=== PATIENT | male | born 1945 | race Caucasian/White ===

== ENCOUNTER 2016-09-30 02:34 | Emergency (ER) | payer MEDICARE ==
[2016-09-30] MEDS ORDERED: Ondansetron INJ* 2 MG/ML VIAL IV ONE (02:57)
[2016-09-30] MEDS ORDERED: Ketorolac INJ* 30 MG/ML 1 ML VIAL IV ONE (02:57)
[2016-09-30] MEDS ORDERED: NS 0.9% 1000 ML* 1,000 ML IV ONE (02:57)
[2016-09-30 03:19] LABS: Hematocrit 44 % (42-52); Hemoglobin 14.4 g/dl (14.0-18.0); Mean Corpuscular HGB Conc 33 g/dl (31-36); Mean Corpuscular Hemoglobin 31 pg (27-31); Mean Corpuscular Volume 93 fL (80-94); Mean Platelet Volume 9 um3 (7.4-10.4); Red Blood Count 4.73 10^6/ul (4.0-5.4); Red Cell Distribution Width 15 % (10.5-15); White Blood Count 7.2 10^3/ul (3.5-10.8)
[2016-09-30 03:34] LABS: Albumin 3.8 g/dL (3.2-5.2); BUN/Creatinine Ratio 17.1 (8-20); C Reactive Protein 4.67 mg/L (< 5.00); Calcium 8.9 mg/dL (8.6-10.3); EGFR African American 70.8 (>60); EGFR Non-African American 55.1 (>60); Globulin 3.5 g/dL (2-4); Magnesium 1.8 mg/dL (1.9-2.7); Potassium 4.1 mmol/L (3.5-5.0); Total Bilirubin 0.8 mg/dL (0.2-1.0); Total Protein 7.3 g/dL (6.4-8.9)
[2016-09-30 05:59] LABS: Budding Yeast Present (Absent); Urine Bacteria Absent (Absent); Urine Bilirubin Negative (Negative); Urine Glucose Negative (Negative); Urine Nitrite Negative (Negative)
--- NOTE | 2016-09-30 06:19 | ED ---
Regla Lacey Erika, scribed for Carlitos Xie MD on 09/30/16 at 0315 . Back Pain - HPI Summary HPI Summary: A 70 y/o M presents to the ED with a CC of lower left-sided back pain starting at 19:30 today. Pt reports the pain has been intermittent. Associated symptoms include vomiting. Pt reports a Hx kidney stones 15-20 years ago, and states this feel similar. He states he had lithotripsy with that episode. - History of Current Complaint Chief Complaint: EDFlankPain Stated Complaint: LOWER BACK PAIN Time Seen by Provider: 09/30/16 02:55 Hx Obtained From: Patient Onset/Duration: Lasting Hours, Still Present Onset/Duration: Atraumatic Timing: Intermittent Back Pain Location: Is Discrete @ - left lower flank Severity Currently: Moderate Pain Intensity: 5 Pain Scale Used: 0-10 Numeric Alleviating Symptom(s): Nothing Associated Signs And Symptoms: Positive: Other - vomiting - Allergies/Home Medications Allergies/Adverse Reactions: Allergies Allergy/AdvReac Type Severity Reaction Status Date / Time Penicillins Allergy Unknown Unknown Verified 12/22/15 20:23 Reaction Details PMH/Surg Hx/FS Hx/Imm Hx Cardiovascular History: Reports: Hx Hypertension, Other Cardiovascular Problems/ Disorders - VALVE REPLACEMENT History: Reports: Hx Kidney Stones - Surgical History Surgery Procedure, Year, and Place: VALVE REPLACEMENT, FX LEG, FX ARM Infectious Disease History: No Infectious Disease History: Denies: Traveled Outside the [place] in Last 30 Days - Family History Known Family History: Positive: Renal Disease - kidney stones - Social History Alcohol Use: None Hx Substance Use: No Substance Use Type: Reports: None Hx Tobacco Use: Yes Smoking Status (MU): Former Smoker Review of Systems Positive: Vomiting Positive: flank pain - left lower All Other Systems Reviewed And Are Negative: Yes Physical Exam Triage Information Reviewed: Yes Vital Signs On Initial Exam: Initial Vitals Temp Pulse Resp BP Pulse Ox 97.7 F 79 18 133/90 97 09/30/16 02:44 09/30/16 02:44 09/30/16 02:44 09/30/16 02:44 09/30/16 02:44 Vital Signs Reviewed: Yes Appearance: Positive: Well-Appearing Diagnostics - Vital Signs Vital Signs Temp Pulse Resp BP Pulse Ox 09/30/16 02:44 97.7 F 79 18 133/90 97 - Laboratory Lab Results: Lab Results 09/30/16 09/30/16 09/30/16 Range/Units 03:00 03:00 05:35 WBC 7.2 (3.5-10.8) 10^3/ul RBC 4.73 (4.0-5.4) 10^6/ul Hgb 14.4 (14.0-18.0) g/dl Hct 44 (42-52) % MCV 93 (80-94) fL MCH 31 (27-31) pg MCHC 33 (31-36) g/dl RDW 15 (10.5-15) % Plt Count 150 (150-450) 10^3/ul MPV 9 (7.4-10.4) um3 Neut % (Auto) 75.9 (38-83) % Lymph % (Auto) 14.8 L (25-47) % Garrett % (Auto) 5.1 (1-9) % Eos % (Auto) 2.6 (0-6) % Baso % (Auto) 1.6 (0-2) % Absolute Neuts (auto) 5.4 (1.5-7.7) 10^3/ul Absolute Lymphs (auto) 1.1 (1.0-4.8) 10^3/ul Absolute Monos (auto) 0.4 (0-0.8) 10^3/ul Absolute Eos (auto) 0.2 (0-0.6) 10^3/ul Absolute Basos (auto) 0.1 (0-0.2) 10^3/ul Absolute Nucleated RBC 0.01 10^3/ul Nucleated RBC % 0.1 Sodium 137 (133-145) mmol/L Potassium 4.1 (3.5-5.0) mmol/L Chloride 105 (101-111) mmol/L Carbon Dioxide 26 (22-32) mmol/L Anion Gap 6 (2-11) mmol/L BUN 22 (6-24) mg/dL Creatinine 1.29 H (0.67-1.17) mg/dL Est GFR ( Amer) 70.8 (>60) Est GFR (Non-Af Amer) 55.1 (>60) BUN/Creatinine Ratio 17.1 (8-20) Glucose 140 H (70-100) mg/dL Calcium 8.9 (8.6-10.3) mg/dL Magnesium 1.8 L (1.9-2.7) mg/dL Total Bilirubin 0.80 (0.2-1.0) mg/dL AST 21 (13-39) U/L ALT 20 (7-52) U/L Alkaline Phosphatase 47 (34-104) U/L C-Reactive Protein 4.67 (< 5.00) mg/L Total Protein 7.3 (6.4-8.9) g/dL Albumin 3.8 (3.2-5.2) g/dL Globulin 3.5 (2-4) g/dL Albumin/Globulin Ratio 1.1 (1-3) Urine Color Yellow Urine Appearance Cloudy Urine pH 6.0 (5-9) Ur Specific Rowan 1.017 (1.010-1.030) Urine Protein 1+(30 mg/dl) H (Negative) Urine Ketones Negative (Negative) Urine Blood 3+ H (Negative) Urine Nitrate Negative (Negative) Urine Bilirubin Negative (Negative) Urine Urobilinogen Negative (Negative) Ur Leukocyte Esterase Negative (Negative) Urine WBC (Auto) Trace(0-5/hpf) (Absent) Urine RBC (Auto) 3+(>10/hpf) H (Absent) Urine Bacteria Absent (Absent) Urine Yeast Present H (Absent) Urine Glucose Negative (Negative) Result Diagrams: 09/30/16 03:00 09/30/16 03:00 Lab Statement: Any lab studies that have been ordered have been reviewed, and results considered in the medical decision making process. - CT CT A/P W/O CT Interpretation: Positive (See Comments) - Obstructing calculus in the proximal to mid left ureter CT Interpretation Completed By: Radiologist - IMAGING [employer]UR[employer] TECHNICIAN Re-Evaluation - Re-Evaluation First Eval Re-Evaluation Time: 05:03 Comment: Pt is feeling improved. Will try to give urine sample at this time Back Pain Course/Dx - Course Assessment/Plan: A 70 y/o M presents to the ED with a CC of left lower flank pain. He reports an old Hx kidney stones. CT A/P shows an obstructing calculus in the proximal to mid left ureter. Patient will be discharged home with follow up from urology after UA obtained. - Diagnoses Provider Diagnoses: Renal colic Discharge - Discharge Plan Condition: Stable Disposition: HOME Patient Education Materials: Renal Colic (ED) Referrals: Gage Garza MD [Medical Doctor] - Additional Instructions: Please follow up with urology. The documentation as recorded by the Regla huston Erika accurately reflects the service I personally performed and the decisions made by me, Carlitos Xie MD.
[2016-09-30] MEDS ORDERED: oxyCODONE/Acetamin 5/325 MG* TAB PO ONE (06:43)
[2016-09-30 06:56] VITALS: BP 110/68
--- NOTE | 2016-09-30 07:59 | RAD ---
INDICATION: Left flank abdominal pain. COMPARISON: There are no prior studies available for comparison. TECHNIQUE: A CT scan of the abdomen and pelvis was performed without intravenous or oral contrast. Contiguous axial sections were obtained from the lung bases through the symphysis pubis. Images were reconstructed in the coronal and sagittal planes. FINDINGS: There are interstitial fibrotic changes present at both lung bases. No pleural effusion is seen. The liver and spleen are normal in size and density. There is a 2.0 x 1.6 cm hypodense lesion present in the posterior segment of the right hepatic lobe. This measures fluid density. No calcified gallstones are seen. The pancreas appears to be within normal limits. The adrenal glands appear within normal limits in size. There are several bilateral hypodense renal lesions measuring up to 4.5 cm in the right kidney most consistent with cysts. There are multiple small bilateral renal calculi measuring between 2 and 4 mm in size. There is a 2 x 4 mm calculus present in the proximal left ureter causing mild hydronephrosis. No bladder calculi are seen. The aorta is mildly ectatic with mild to moderate calcific plaque present. No significant enlarged retroperitoneal lymph nodes are seen. The stomach, small and large bowel appear nondistended. The appendix is within normal limits. There is mild descending and sigmoid diverticulosis without evidence for diverticulitis. There is a small periumbilical hernia containing fat and small bilateral inguinal hernias also containing fat. No free intraperitoneal air or fluid is seen. There are mild compression fractures involving the superior endplates of the T11 and T12 vertebral bodies which appear old. IMPRESSION: 1. 2 X 4 MM CALCULUS PRESENT IN THE PROXIMAL LEFT URETER CAUSING MILD HYDRONEPHROSIS. 2. MULTIPLE BILATERAL ADDITIONAL SMALL RENAL CALCULI. 3. MULTIPLE RENAL CYSTS. 4. HYPODENSE HEPATIC LESION MOST CONSISTENT WITH A CYST OR HEMANGIOMA ALTHOUGH NONSPECIFIC ON THIS NONCONTRAST STUDY. 5. MILD CHRONIC COMPRESSION FRACTURES OF THE T11 AND T12 VERTEBRAL BODIES.
== END 2016-09-30 06:54 | disposition home or self-care (01) ==
LOC: ED 02:34
DX: N23 Unspecified renal colic (principal); Z87.442 Personal history of urinary calculi; Z87.891 Personal history of nicotine dependence; Z88.0 Allergy status to penicillin
CPT/HCPCS: 36415; 74176; 80053; 81003; 81015; 83735; 85025; 86140; 96361; 96374; 99283; A9270-GY; J1885; J2405

== ENCOUNTER 2017-04-07 16:37 | Emergency (ER) | payer MEDICARE ==
[2017-04-07 16:43] VITALS: BP 103/65
[2017-04-07] MEDS ORDERED: Ipratropium 0.5MG/2.5ML NEB* 0.5 MG/2.5 ML NEB.SOLN INH ONE (16:47)
[2017-04-07] MEDS ORDERED: Albuterol 2.5 MG/3 ML NEB.SOL* (0.083%) INH ONE (16:47)
--- NOTE | 2017-04-07 16:50 | UC ---
Respiratory Complaint HPI - HPI Summary HPI Summary: 71 YOU MALE WITH 3 DAY HX OF WORSENING DYSPNEA AND SWELLING OF LEGS HX IDIOPATHIC PULMONARY EDEMA HX CHF HX VALVE REPLACEMENT COUGH NO F/C NO CP - History of Current Complaint Chief Complaint: UCRespiratory Stated Complaint: SOB Time Seen by Provider: 04/07/17 16:44 Hx Obtained From: Patient Onset/Duration: Gradual Onset, Lasting Days Timing: Constant Severity Initially: Moderate Severity Currently: Moderate Pain Intensity: 0 Pain Scale Used: 0-10 Numeric Character: Cough: Nonproductive Aggravating Factors: Recumbent Position Alleviating Factors: Nothing Associated Signs And Symptoms: Positive: Dyspnea, Edema - Allergies/Home Medications Allergies/Adverse Reactions: Allergies Allergy/AdvReac Type Severity Reaction Status Date / Time Penicillins Allergy Unknown Unknown Verified 12/22/15 20:23 Reaction Details Home Medications: Home Medications Nintedanib Esylate [Ofev] 150 mg 04/07/17 [History] PMH/Surg Hx/FS Hx/Imm Hx Previously Healthy: No Cardiovascular History: Congestive Heart Failure, Other Other Cardiovascular History: VALVE REPLACEMENT Respiratory History: Other Other Respiratory History: PULMONARY FIBROSIS - Surgical History Surgical History: Yes Surgery Procedure, Year, and Place: VALVE REPLACEMENT, FX LEG, FX ARM - Family History Known Family History: Positive: Hypertension, Renal Disease - kidney stones - Social History Alcohol Use: None Substance Use Type: None Smoking Status (MU): Never Smoked Tobacco Review of Systems Constitutional: Negative Skin: Negative Eyes: Negative ENT: Negative Respiratory: Shortness Of Breath, Cough Cardiovascular: Negative Gastrointestinal: Negative Genitourinary: Negative Motor: Negative Neurovascular: Negative Musculoskeletal: Edema Neurological: Negative Psychological: Negative All Other Systems Reviewed And Are Negative: Yes Physical Exam Triage Information Reviewed: Yes Appearance: Well-Appearing, No Pain Distress, Well-Nourished Vital Signs: Initial Vital Signs Temp 99 F 04/07/17 16:39 Pulse 73 04/07/17 16:39 Resp 22 04/07/17 16:39 BP 103/65 04/07/17 16:39 Pulse Ox 95 04/07/17 16:39 Vital Signs Reviewed: Yes Eyes: Positive: Conjunctiva Clear ENT: Negative: Nasal congestion, Nasal drainage, Trismus, Muffled/hoarse voice Neck: Positive: Supple, Nontender Respiratory: Positive: No respiratory distress, Crackles - VELCRO RALES BOTH BASES. Negative: Lungs clear, Normal breath sounds, Decreased breath sounds, Accessory muscle use Cardiovascular: Positive: RRR. Negative: Tachycardia, Bradycardia Musculoskeletal: Positive: Edema @ - ++ PRETIBIAL Neurological: Positive: Alert Psychological Exam: Normal UC Diagnostic Evaluation - Laboratory O2 Sat by Pulse Oximetry: 95 - LOW NORMAL - Radiology Radiology Interpretation Completed By: Radiologist - ? INTERSTITIAL PULMONARY EDEMA VS WORSENING PULM FIBROSIS Respiratory Course/Dx - Differential Dx/Diagnosis Provider Diagnoses: WORSENING DYSPNEA. SUSPECT CHF Discharge - Discharge Plan Condition: Stable Disposition: HOME Patient Education Materials: Heart Failure (ED) Referrals: Eduard Dale MD [Primary Care Provider] - As Soon As Possible Additional Instructions: take 1/2 of your diurectic pill today take a full pill in AM TO ER FOR NEW OR WORSENING SYMPTOMS GET IN TO SEE YOUR PRIMARY OR PATTERN MARKING SUPERVISOR TOMORROW
--- NOTE | 2017-04-07 17:44 | RAD ---
INDICATION: Cough and shortness of breath COMPARISON: Chest x-ray dated December 22, 2015 TECHNIQUE: PA and lateral views of the chest were obtained. FINDINGS: Postoperative findings include a prostatic aortic arch, sternotomy wires and surgical clips overlying the mediastinum. There is a mild degree of cardiomegaly unchanged from the previous chest x-ray. There are diffuse reticulonodular densities similar in distribution to the previous chest x-ray but appearing denser more confluent at the mid-level right lung and potentially at the left lung base. The diaphragm and costophrenic angles are adequately defined on the AP and lateral views. IMPRESSION: WORSENING AERATION WHEN COMPARED TO THE DECEMBER 22, 2015 CHEST X-RAY WHICH CAN BE DUE TO WORSENING INTERSTITIAL LUNG DISEASE VERSUS CARDIOGENIC PULMONARY EDEMA.
== END 2017-04-07 18:11 | disposition home or self-care (01) ==
LOC: UCEAST 16:37
DX: R06.00 Dyspnea, unspecified (principal); Z95.2 Presence of prosthetic heart valve
CPT/HCPCS: 71020; 99212; G0463; J7644

== ENCOUNTER 2017-04-20 12:04 | Emergency (ER) | payer MEDICARE ==
[2017-04-20 13:20] VITALS: BP 101/58
--- NOTE | 2017-04-20 14:22 | RAD ---
HISTORY: Left foreleg, trauma, pain and swelling COMPARISONS: None VIEWS: 2, Frontal and lateral views of the left foreleg FINDINGS: BONE DENSITY: Normal. BONES: There is remote posttraumatic deformity to the fibular and tibial diaphyses. There is no acute displaced fracture. JOINTS: There is mild osteoarthritis of the knee and ankle. ALIGNMENT: There is no dislocation. SOFT TISSUES: Unremarkable. OTHER FINDINGS: None. IMPRESSION: OSTEOARTHRITIS. NO ACUTE OSSEOUS INJURY. IF SYMPTOMS PERSIST, RECOMMEND REPEAT IMAGING.
--- NOTE | 2017-04-20 14:22 | RAD ---
Indication: Left foot pain 4 views of left foot demonstrates degenerative changes of the first metatarsophalangeal joint. Degenerative changes of the interphalangeal joints of the first digit is also present. No fracture is identified. The calcaneus and talus are otherwise unremarkable. IMPRESSION: Degenerative changes of the first metatarsal phalangeal joint and the distal interphalangeal joints of the first through fifth digits.
--- NOTE | 2017-04-20 14:49 | UC ---
Lower Extremity/Ankle HPI - HPI Summary HPI Summary: TWISTING INJURY TO LEFT FOOT 04/11/17. ABLE TO AMBULATE, BUT SINCE THAT TIME HAS HAD BRUISING, SWELLING, AND TINGLING ALONG (LATERAL) LEFT LEG TO FOOT AND ANKLE. NO HEEL PAIN. NO PAIN IN ACHILLES. ELEVATION HELPS. - History of Current Complaint Chief Complaint: UCLowerExtremity Stated Complaint: ANKLE INJURY Time Seen by Provider: 04/20/17 13:39 Hx Obtained From: Patient Onset/Duration: Sudden Onset, Lasting Weeks, Still Present Severity Initially: Moderate Severity Currently: Mild Aggravating Factor(s): Standing, Ambulation Alleviating Factor(s): Rest, Elevation Able to Bear Weight: Yes - Risk Factors Gout Risk Factors: Age Over 40, Male DVT Risk Factors: Negative Septic Arthritis Risk Factor: Negative - Allergies/Home Medications Allergies/Adverse Reactions: Allergies Allergy/AdvReac Type Severity Reaction Status Date / Time Penicillins Allergy Unknown Unknown Verified 04/20/17 13:14 Reaction Details PMH/Surg Hx/FS Hx/Imm Hx Previously Healthy: Yes - Surgical History Surgical History: Yes Surgery Procedure, Year, and Place: VALVE REPLACEMENT, FX LEG, FX ARM - Family History Known Family History: Positive: None, Hypertension, Renal Disease - kidney stones - Social History Occupation: Retired Lives: With Family Alcohol Use: None Substance Use Type: None Smoking Status (MU): Never Smoked Tobacco - Immunization History Most Recent Influenza Vaccination: 2016 Most Recent Tetanus Shot: up to date Most Recent Pneumonia Vaccination: current Review of Systems Constitutional: Negative Skin: Negative Eyes: Negative ENT: Negative Respiratory: Negative Cardiovascular: Negative Genitourinary: Negative Motor: Negative Neurovascular: Negative Musculoskeletal: Arthralgia, Myalgia Neurological: Negative Psychological: Negative All Other Systems Reviewed And Are Negative: Yes Physical Exam Triage Information Reviewed: Yes Appearance: Well-Appearing, No Pain Distress, Well-Nourished Vital Signs: Initial Vital Signs Temp 97.5 F 04/20/17 13:14 Pulse 66 04/20/17 13:14 Resp 17 04/20/17 13:14 BP 101/58 04/20/17 13:14 Pulse Ox 96 04/20/17 13:14 Vital Signs Reviewed: Yes Eye Exam: Normal ENT Exam: Normal ENT: Positive: Normal ENT inspection, Hearing grossly normal, TMs normal Dental Exam: Normal Neck exam: Normal Neck: Positive: Supple, Nontender Respiratory Exam: Normal Respiratory: Positive: Chest non-tender, Lungs clear, Normal breath sounds, No respiratory distress Cardiovascular Exam: Normal Cardiovascular: Positive: RRR, No Murmur, Pulses Normal Abdominal Exam: Normal Musculoskeletal: Positive: Strength Intact, ROM Intact, No Edema, Other: - ANTERIOR TIBIALIS TENDERNESS TO PALPATION Neurological Exam: Normal Neurological: Positive: Alert, Muscle Tone Normal Psychological Exam: Normal Skin Exam: Normal Lower Extremity Course/Dx - Course Course Of Treatment: PATIENT REFUSED CRUTCHES, [place] WRAP. - Differential Dx/Diagnosis Differential Diagnosis/HQI/PQRI: Fracture (Closed), Sprain, Strain, Tendonitis Provider Diagnoses: LEFT FOOT SPRAIN; PARESTHESIA LEFT LATERAL LOWER LEG. Discharge - Discharge Plan Condition: Stable Disposition: HOME Patient Education Materials: Foot Sprain (ED), Paresthesia (ED) Referrals: Eduard Dale MD [Primary Care Provider] - Alexis Mabry MD [Medical Doctor] -
== END 2017-04-20 14:46 | disposition home or self-care (01) ==
LOC: UCEAST 12:04
DX: S93.602A Unspecified sprain of left foot, initial encounter (principal); X50.1XXA Overexertion from prolonged static or awkward postures, initial encounter; Y93.9 Activity, unspecified; Y92.9 Unspecified place or not applicable; Y99.9 Unspecified external cause status; R20.9 Unspecified disturbances of skin sensation
CPT/HCPCS: 99212; G0463

== ENCOUNTER 2018-01-13 11:17 | Emergency (ER) | payer MEDICARE ==
[2018-01-13 11:27] VITALS: BP 116/72
[2018-01-13] MEDS ORDERED: Albuterol/Ipratropium NEB.SOL* Albuterol 2.5 MG/Ipratropium 0.5 MG 3 ML INH ONE (11:46)
--- NOTE | 2018-01-13 11:50 | UC ---
Shaquille Lacey Julia, scribed for Lupe Roberts MD on 01/13/18 at 1143 . Respiratory Complaint HPI - HPI Summary HPI Summary: This patient is a 72 year old M presenting to [facility] with a chief complaint of acute on chronic SOB at rest since yesterday. Pt with complex hx including pulmonary fibrosis and CHF. Pt takes HTCZ and inhalers. Patient reports fluid retention with inhalation and a nonproductive cough. Patient denies pain, fever, chills, sinus congestion, ear pain, nausea, vomiting, and diarrhea. Symptoms unchanged by inhaler use. Pt is using a new inhaler. Pt wears 2L of nasal cannula O2 with activity and at night. He states his SaO2 is typically in the 90s while at rest, but will drop lower with exertion. Pt has a hx of pulmonary fibrosis and CHF. Pt takes 30mg of prednisone daily; he was taking 40mg, but switched to 30mg this past week. He was told by his PCP, Dr. Dale, at [place] to come to Urgent Care. Pt was last seen in hospital December 2016. He did not take Prednisone yet today. He has been eating a high salt diet recently. Pt's medications reviewed this visit - History of Current Complaint Chief Complaint: UCRespiratory Stated Complaint: SHORTNESS OF BREATH Time Seen by Provider: 01/13/18 11:31 Hx Obtained From: Patient Onset/Duration: Lasting Days Timing: Constant Pain Intensity: 0 Pain Scale Used: 0-10 Numeric Character: Cough: Nonproductive Aggravating Factors: Exertion Alleviating Factors: Nothing Associated Signs And Symptoms: Positive: Edema - Allergies/Home Medications Allergies/Adverse Reactions: Allergies Allergy/AdvReac Type Severity Reaction Status Date / Time Penicillins Allergy Unknown Verified 01/13/18 11:34 Reaction Details Home Medications: Home Medications predniSONE TAB* [Deltasone TAB*] 30 mg PO DAILY 01/13/18 [History Confirmed ] PMH/Surg Hx/FS Hx/Imm Hx Previously Healthy: Yes Cardiovascular History: Congestive Heart Failure Other Respiratory History: pulmonary fibrosis - Surgical History Surgical History: Yes Surgery Procedure, Year, and Place: VALVE REPLACEMENT, FX LEG, FX ARM - Family History Known Family History: Positive: Hypertension, Renal Disease - kidney stones - Social History Lives: With Family Alcohol Use: None Substance Use Type: None Smoking Status (MU): Never Smoked Tobacco - Immunization History Most Recent Influenza Vaccination: 2016 Most Recent Tetanus Shot: up to date Most Recent Pneumonia Vaccination: current Review of Systems Constitutional: Other - fluid retention Respiratory: Shortness Of Breath, Cough All Other Systems Reviewed And Are Negative: Yes Physical Exam Triage Information Reviewed: Yes Appearance: Well-Nourished, Other: - mild tachypnea Vital Signs: Initial Vital Signs Temp 97.9 F 01/13/18 11:21 Pulse 70 01/13/18 11:21 Resp 22 01/13/18 11:21 BP 116/72 01/13/18 11:21 Pulse Ox 97 01/13/18 11:21 Vital Signs Reviewed: Yes Eye Exam: Normal Eyes: Positive: Conjunctiva Clear ENT Exam: Normal ENT: Positive: Normal ENT inspection, Hearing grossly normal, Pharynx normal, TMs normal Dental Exam: Normal Neck exam: Normal Neck: Positive: Supple, Nontender, No Lymphadenopathy Respiratory: Positive: Other: - mild tachypnea scattered wheeze + BS throughout Cardiovascular Exam: Normal Cardiovascular: Positive: RRR, No Murmur Musculoskeletal Exam: Normal Neurological Exam: Normal Neurological: Positive: Alert, Muscle Tone Normal Psychological Exam: Normal Skin Exam: Normal UC Diagnostic Evaluation - Laboratory O2 Sat by Pulse Oximetry: 97 - Radiology Radiology Interpretation Completed By: ED Physician - has reviewed this report, Radiologist - MULTIFOCAL RETICULONODULAR DENSITIES DESCRIBED ABOVE HAVE NOT CHANGED SIGNIFICANTLY Re-Evaluation - Re-Evaluation 1 Re-Evaluation Time: 12:37 Change: Improved - Pt's symptoms/respiration are minimally improved. Pt agrees to go to Emergency Department. CXR is unchanged from previous. Pt will go by POV - friend and daughter present - pt is stable and saturating well on his O2 - pt will wear enroute Respiratory Course/Dx - Course Course Of Treatment: Pt with pulm fibrosis and CHF. Pt with sat upper 80 on arrival - pt not on 02 - improved t 97% on O2. Will check cxr and neb. d/w pt - unless signifiant improvement with neb will likely send to ED. Pt states understanding and agreement with plan - Differential Dx/Diagnosis Provider Diagnoses: MORAN Discharge - Sign-Out/Discharge Documenting (check all that apply): Discharge - Discharge Plan Condition: Stable Disposition: HOME Patient Education Materials: Dyspnea (ED) Referrals: Eduard Dale MD [Primary Care Provider] - Additional Instructions: - As discussed with the doctor at urgent care, it is recommended you go directly to the emergency department for further evaluation and treatment. As discussed, you must wear your oxygen at all times until you are evaluated in the emergency department. If your symptoms worsen of you have any changes or concerns, call 911 for assistance. The emergency department at [facility] is expecting you - Billing Disposition and Condition Condition: STABLE Disposition: HOME The documentation as recorded by the Shaquille huston Julia accurately reflects the service I personally performed and the decisions made by me, Lupe Roberts MD.
--- NOTE | 2018-01-13 12:21 | RAD ---
INDICATION: Cough and wheezing. Requisition notes a history of pulmonary fibrosis. COMPARISON: Chest x-ray dated April 07, 2017 TECHNIQUE: PA and lateral views of the chest were obtained. FINDINGS: Postsurgical changes include sternotomy wires, a prostatic aortic valve as well as surgical clips overlying the right upper mediastinum. The heart and mediastinum are normal in size and contour. Again seen is reticulonodular density overlying the mid-level lateral right lung as well as the left lung base. The appearance of the lungs has not changed significantly since the April 07, 2017 chest x-ray. There is no lobar consolidation or severe costophrenic angle blunting to indicate pleural effusion. Visualized bones are normal for the patient's age. There is no radiographic evidence of free air beneath the diaphragm IMPRESSION: MULTIFOCAL RETICULONODULAR DENSITIES DESCRIBED ABOVE HAVE NOT CHANGED SIGNIFICANTLY SINCE THE APRIL 07, 2017 CHEST X-RAY. APPEARANCE IS CONSISTENT WITH THE PATIENT'S REPORTED HISTORY OF PULMONARY FIBROSIS.
== END 2018-01-13 12:40 | disposition home or self-care (01) ==
LOC: UCEAST 11:17
DX: R06.00 Dyspnea, unspecified (principal); R05 Cough; R60.9 Edema, unspecified; I50.9 Heart failure, unspecified; J84.10 Pulmonary fibrosis, unspecified; Z95.2 Presence of prosthetic heart valve; Z88.0 Allergy status to penicillin
CPT/HCPCS: 71046; 99213; A9270-GY; G0463

== ENCOUNTER 2018-01-13 13:00 | Emergency (ER) | payer MEDICARE ==
[2018-01-13 15:25] VITALS: BP 102/67
== END 2018-01-13 16:44 | disposition left against medical advice (07) ==
LOC: ED 13:00
DX: R06.02 Shortness of breath (principal); Z53.21 Procedure and treatment not carried out due to patient leaving prior to being seen by health care provider

== ENCOUNTER 2018-03-11 17:19 | Emergency (ER) | payer MEDICARE ==
[2018-03-11 17:39] VITALS: BP 97/65
[2018-03-11] MEDS ORDERED: predniSONE TAB* 20 MG PO ONE (17:46)
[2018-03-11] MEDS ORDERED: Albuterol 2.5 MG/3 ML NEB.SOL* (0.083%) INH ONE (17:47)
[2018-03-11] MEDS ORDERED: Ipratropium 0.5MG/2.5ML NEB* 0.5 MG/2.5 ML NEB.SOLN INH ONE (17:47)
--- NOTE | 2018-03-11 17:57 | UC ---
Respiratory Complaint HPI - HPI Summary HPI Summary: 72 yo male with pulmonary fibrosis presents with about 5 days of worsening dyspnea he restarted his prednisone then taking about 5 mg /d no f/c he is having dyspnea at rest it marked worsens with exertion - History of Current Complaint Chief Complaint: UCRespiratory Stated Complaint: SHORTNESS OF BREATH Time Seen by Provider: 03/11/18 17:28 Hx Obtained From: Patient Onset/Duration: Sudden Onset, Lasting Days Timing: Constant Severity Initially: Mild Severity Currently: Moderate Pain Intensity: 0 Pain Scale Used: 0-10 Numeric Character: Cough: Productive - clear sputum Aggravating Factors: Exertion, Nothing Associated Signs And Symptoms: Positive: Dyspnea, Wheezing - Allergies/Home Medications Allergies/Adverse Reactions: Allergies Allergy/AdvReac Type Severity Reaction Status Date / Time Penicillins Allergy Unknown Verified 01/13/18 11:34 Reaction Details PMH/Surg Hx/FS Hx/Imm Hx Previously Healthy: Yes Cardiovascular History: Hypertension Other Cardiovascular History: vlve replacement Other Respiratory History: pulmonary fibrosis - Surgical History Surgical History: Yes Surgery Procedure, Year, and Place: VALVE REPLACEMENT, FX LEG, FX ARM - Family History Known Family History: Positive: Hypertension, Renal Disease - kidney stones - Social History Alcohol Use: None Substance Use Type: None Smoking Status (MU): Never Smoked Tobacco - Immunization History Most Recent Influenza Vaccination: 2016 Most Recent Tetanus Shot: up to date Most Recent Pneumonia Vaccination: current Review of Systems Constitutional: Fatigue Skin: Negative Eyes: Negative ENT: Negative Respiratory: Shortness Of Breath, Cough Cardiovascular: Negative Gastrointestinal: Negative Genitourinary: Negative Motor: Negative Neurovascular: Negative Musculoskeletal: Negative Neurological: Negative Psychological: Negative Is Patient Immunocompromised?: No All Other Systems Reviewed And Are Negative: Yes Physical Exam Triage Information Reviewed: Yes Appearance: No Pain Distress, Ill-Appearing Vital Signs: Initial Vital Signs Temp 98.0 F 03/11/18 17:27 Pulse 100 03/11/18 17:27 Resp 24 03/11/18 17:27 BP 97/65 03/11/18 17:27 Pulse Ox 79 03/11/18 17:27 Vital Signs Reviewed: Yes Eyes: Positive: Conjunctiva Clear ENT: Positive: Hearing grossly normal. Negative: Nasal congestion, Nasal drainage, Trismus, Muffled voice, Hoarse voice Neck: Positive: Supple, Nontender, No Lymphadenopathy Respiratory: Positive: Crackles - velcro rales both bases/some wheezing upper lobes Cardiovascular: Positive: RRR, Tachycardia Musculoskeletal: Positive: ROM Intact, No Edema Neurological: Positive: Alert Psychological Exam: Normal Skin Exam: Normal UC Diagnostic Evaluation - Laboratory O2 Sat by Pulse Oximetry: 79 - hypoxic on 2 L NC - Radiology Xray Interpretation: Positive (See Comments) - FINDINGS CONSISTENT WITH CHRONIC INTERSTITIAL LUNG DISEASE. THE POSSIBILITY Re-Evaluation - Re-Evaluation First Eval Re-Evaluation Time: 18:47 Change: Improved - velcro rales at base/no wheezes pox 98 % on 4Lnc Respiratory Course/Dx - Course Course Of Treatment: I suggested that the patient go by EMS to ED. He declined. He says he will go there if he worsens. Aware he may need diuresis/ admission for pulmonary edema as well as blood work that we can not do here. Aware of risks - Differential Dx/Diagnosis Provider Diagnoses: pulmonary fibrosis. ? pulmonary edema. bronchospasm Discharge - Sign-Out/Discharge Documenting (check all that apply): Discharge/Admit/Transfer - Discharge Plan Condition: Stable Disposition: HOME Patient Education Materials: Pulmonary Fibrosis (ED) Referrals: Eduard Dale MD [Primary Care Provider] - Additional Instructions: When you arrived here your oxygen level was low Your XR showed pulmonary fibrosis The radiologist suggested you may have some superimposed pulmonary edema (fluid overload) in the lungs You improved dramatically with a neb treatment MY BEST ADVICE IS TO GO TO THE ER FOR FURTHER EVALUATION You are reluctant to go, so we will try to manage you at home IF YOUR BREATHING WORSENS CALL AND GET TO THE ER use inhaler 2 puffs 4x day take 40 mg of prednisone in AM get in to see your pulmonalogist or health economist tomorrow - Billing Disposition and Condition Condition: STABLE Disposition: Home
--- NOTE | 2018-03-11 18:13 | RAD ---
INDICATION: Dyspnea, pulmonary fibrosis. COMPARISON: Comparison is made with prior studies from April 07, 2017 and January 13, 2018. TECHNIQUE: Dual-energy PA and lateral views of the chest were obtained. FINDINGS: The patient is status post sternotomy and cardiac valve replacement surgery. The heart is mildly enlarged and unchanged from the prior exam. There is diffuse prominence of the interstitial markings with slightly more focal density in the right midlung which is unchanged from the prior 2 studies. No pleural effusion is seen. IMPRESSION: FINDINGS CONSISTENT WITH CHRONIC INTERSTITIAL LUNG DISEASE. THE POSSIBILITY OF MILD SUPERIMPOSED PULMONARY EDEMA CANNOT BE EXCLUDED.
[2018-03-11] MEDS ORDERED: Albuterol HFA INHALER* 8 gm MDI INH ONE (18:39)
== END 2018-03-11 19:33 | disposition home or self-care (01) ==
LOC: UCEAST 17:19
DX: J98.01 Acute bronchospasm (principal); J84.10 Pulmonary fibrosis, unspecified; I10 Essential (primary) hypertension; Z88.0 Allergy status to penicillin; Z95.2 Presence of prosthetic heart valve
CPT/HCPCS: 71046; 99202; A9270-GY; G0463; J7512